=== PATIENT | female | born 1980 | race American Indian/Alaskan Native ===

== ENCOUNTER 2017-11-24 09:42 | Inpatient (IN) | payer MEDICAID ==
[2017-11-24] MEDS ORDERED: Oxycodone/Acetaminophen 5/325 mg Tab PO PRN ×2 (10:12)
[2017-11-24] MEDS ORDERED: Lactated Ringer's 1,000 ML IV SCH (10:15)
[2017-11-24 13:10] LABS: ALB/GLOB RATIO 0.8 (1.0-2.1); ALBUMIN 3.7 g/dL (3.5-5.0); ALT/SGPT 8 U/L (9-52); AST/SGOT 17 U/L (14-36); BLOOD UREA NITROGEN 5 mg/dL (7-17); CALCIUM 9.3 mg/dl (8.6-10.4); GFR NON-AFRICAN AMERICAN > 60
[2017-11-24 13:14] LABS: BASO # 0.1 K/uL (0.0-0.2); BASO % 0.3 % (0.0-2.0); EOS # 0.2 K/uL (0.0-0.7); EOS % 1.2 % (0.0-4.0); HEMOGLOBIN 9.9 g/dL (11.0-16.0); LYMPH # 2.4 K/uL (1.0-4.3); LYMPH % 14.9 % (20.0-40.0); MEAN CELL VOLUME 84.7 fL (81.0-99.0); MEAN CORPUSCULAR HGB CONC 33.1 g/dL (33.0-37.0); MEAN PLATELET VOLUME 9.6 fL (7.2-11.7); MONO # 1.2 K/uL (0.0-0.8); MONO % 7.6 % (0.0-10.0); NEUT # 12.4 K/uL (1.8-7.0); NRBC % 0.1 % (0.0-2.0); RBC 3.55 Mil/uL (3.80-5.20); RED CELL DISTRIBUTION WIDTH 15.9 % (11.5-14.5); WHITE BLOOD COUNT 16.3 K/uL (4.8-10.8)
--- NOTE | 2017-11-24 15:49 | OBADHP ---
Datetime: 11/24/2017 11:27 Admit Comment, IP Provider: cc: "Precipitous delivery" HPI: Patient is a who presented for precipitous delivery. Patient was in active labor and broug ht to the L_D department. Based on earliest ultrasound (05/28/17), gestational age is 38 weeks and 4 d ays. Since delivery was precipitous, information was obtained from prior charting. Patient was having movements and contractions upon presentation. There was no vaginal bleed. OBHx: Patient has had 6 prior deliveries. They were all , of which 5 were term and 1 . Most recent previous delivery was on 10/2011. GynHx: menarche was at 11 y/o. Frequency of preiods are at 28 days for a duration of 4-5 days. Neg ative HIV, RPR, HPV, chlamydia, gonorrhea. Positive for trichomoniasis vaginalis. No known history of fibroids or cysts. PMHx: Asthma, Seasonal allergies, PSHx: None Social Hx: Meds: ferrous sulfate, metronidazole, vitamins Allergies: NKDA ROS: unable to be obtained at the time since patient was in active labor. Assessment: Patient is a at 38 weeks and 4 days gestational age who presented with precipitous deliver y. Patient was in active labor and brought immedietly to the L_D department for successful . Plan: 1. Admit 2. NPO 3. Precipitous Corona Solares DO PGY1 H_P for Dr. Monte Pelvic Type - PN: Adequate Extremities - PN: Normal Abdomen - PN: Normal Back - PN: Normal Breast - PN: Not Done Lungs - PN: Normal Heart - PN: Normal Thyroid - PN: Normal Neurologic - PN: Normal HEENT - PN: Normal General - PN: Normal Presentation-Admit: Vertex Membranes, Provider: Guera Gonzalez, ACOG Physical Exam: Gen: Patient is in active labor upon presentation. Abdomen: Gravid abdomen. head is visible. Gestation - Est Wks by US: 38.4 IP Hx Assessment: The History has been Reviewed and is Current Vital Signs Provider: Reviewed; Within Normal Limits IP Chief Complaint: Uterine contractions Dilatation, Provider: 10 Effacement, Provider: 100 Station, Provider: 2 Genitourinary Exam: Normal DTRs - PN: Not Done IP Adm Impression: Term, intrauterine ; Active labor IP Admit Plan: Admit to unit; Initiate labor protocol
--- NOTE | 2017-11-24 16:10 | OBDS ---
DELIVERY PERSONNEL Delivery Doctor: DR CHIRINOS Engineering Librarian: Vinh Perez RN MATERNAL INFORMATION Delivery Anesthesia: None Estimated Blood Loss (ml): 200 Maternal Complications: Precipitous Labor (<3hrs) Provider Comments: Precipitous vaginal delivery upon transfered from the stretcher to the bed, of a viable female from CRISTAL position and over an intact perineum. Apgars 9_9 and BW 7lbs, 9oz. No time to monitor FHR or Cx's. EBL 200 mls Pt and both tolerated the procedure well and remained in LDR in S_S condition LABOR SUMMARY EDC: 12/05/2017 00:00 LABOR INFORMATION Reason for Induction: Not Applicable Group B Beta Strep: N/A Reason Steroids Not Administered: Not Applicable STAGES OF LABOR Stage 3 hrs: 0 Stage 3 min: 5 VAGINAL DELIVERY Episiotomy: None Laceration Type: None Initial Vag Sponge Count: 10 Final Vag Sponge Count: 10 Sponge Count Correct: N/A Sharps Count Correct: Yes BABY A INFORMATION Delivery Date/Time: 11/24/2017 09:43 Method of Delivery: Vaginal Born in Route : No : N/A Forceps: N/A Vacuum Extraction: N/A Shoulder Dystocia : No SHOULDER DYSTOCIA BABY A Infant Delivery Date/Time: 11/24/2017 09:43 PRESENTATION/POSITION BABY A Presentation: Cephalic Cephalic Presentation: Vertex Vertex Position: Right Occipital Posterior PLACENTA INFORMATION BABY A Placenta Delivery Time : 11/24/2017 09:48 Placenta Method of Delivery: Spontaneous Placenta Status: Delivered SCORES BABY A Heart Rate 1 min: >100 bpm Resp Effort 1 min: Good Cry Reflex Irritability 1 min: Cough or Sneeze or Pulls Away Muscle Tone 1 min: Active Motion Color 1 min: Body [place], Extremities Blue SCORE 1 MIN: 9 Heart Rate 5 min: >100 bpm Resp Effort 5 min: Good Cry Reflex Irritability 5 min: Cough or Sneeze or Pulls Away Muscle Tone 5 min: Active Motion Color 5 min: Body [place], Extremities Blue SCORE 5 MIN: 9 INFORMATION BABY A Gestational Age at Delivery: 38.0 Gestational Status: Term Infant Outcome : Liveborn Condition : Stable Sex: Female IDENTIFICATION/MEDS BABY A ID Band Number: [id number] ID Band Location: Left Leg; Left Arm Sensor Applied: Yes Sensor Number: [id number] Sensor Location : Cord Clamp Vitamin K Given : Not Given Erythromycin Given: Not Given WEIGHT/LENGTH BABY A Birthweight (gms): 3445 Infant Weight (lb): 7 Infant Weight (oz): 9 Infant Length Inches: 19.25 Length cms: 48.9 CORD INFORMATION BABY A No. Cord Vessels: 3 Nuchal Cord : N/A Cord Blood Taken: Yes Suction: Mouth; Nose ASSESSMENT BABY A Complications: None Foreign Service Officer/ALS Called : Yes Care By: dr heller Transferred To: Nursery
[2017-11-24 21:40] LABS: BARBITURATES, UR NEGATIVE (NEGATIVE); BENZODIAZEPINES, UR NEGATIVE (NEGATIVE); OPIATES, UR NEGATIVE (NEGATIVE); PHENCYCLIDINE, UR NEGATIVE (NEGATIVE)
[2017-11-24 22:47] LABS: SQUAMOUS EPITHIAL 5 /hpf (0-5); URINE BILIRUBIN NEGATIVE (NEGATIVE); URINE BLOOD 3+ (NEGATIVE); URINE CLARITY Hazy (Clear); URINE COLOR Red (YELLOW); URINE GLUCOSE (UA) NORMAL (Normal); URINE LEUKOCYTE ESTERASE 2+ Leu/uL (Negative); URINE PROTEIN 2+ mg/dL (NEGATIVE)
[2017-11-25 07:18] LABS: BASO # 0.1 K/uL (0.0-0.2); BASO % 0.5 % (0.0-2.0); EOS # 0.3 K/uL (0.0-0.7); EOS % 2.4 % (0.0-4.0); LYMPH # 2.3 K/uL (1.0-4.3); LYMPH % 21.5 % (20.0-40.0); MEAN CELL VOLUME 84.4 fL (81.0-99.0); MEAN CORPUSCULAR HEMOGLOBIN 28.5 pg (27.0-31.0); MEAN CORPUSCULAR HGB CONC 33.7 g/dL (33.0-37.0); MEAN PLATELET VOLUME 9.5 fL (7.2-11.7); MONO # 0.8 K/uL (0.0-0.8); MONO % 7.4 % (0.0-10.0); NEUT # 7.3 K/uL (1.8-7.0); NEUT % 68.2 % (50.0-75.0); RBC 2.62 Mil/uL (3.80-5.20); RED CELL DISTRIBUTION WIDTH 15.7 % (11.5-14.5); WHITE BLOOD COUNT 10.6 K/uL (4.8-10.8)
[2017-11-25 07:39] LABS: HEMOGLOBIN 7.4 g/dL (11.0-16.0)
[2017-11-25] MEDS: Multiple Vitamins Tab PO SCH (09:44)
--- NOTE | 2017-11-25 12:45 | OBPPN ---
Datetime: 11/25/2017 08:31 PP Pain Prov: Within normal limits PP Pain Prov comment: headache PP Nausea Prov: Present PP Flatus Prov: Yes PP BM Prov: No PP Nausea Prov comment: postural dizziness PP Breasts Prov: Not Done PP Heart Prov: Normal PP Lungs Prov: Normal PP Abdomen/Uterus Prov: Normal PP Lochia Prov: Normal PP Vulva/Perineum Prov: Normal PP CVA Tenderness Prov: Normal PP Extremities Prov: Normal PP C/S Incision Prov: Not Applicable PP Progress Prov: Not Applicable PP Comments Phys Exam Prov: Cardio: RRR, normal s1/s2 Lungs: CTA b/l. No w/r/r. Abdominal: fundal height is palpated at the periumbilical region. Lower extremities: no pitting edema. No calf tenderness or swelling. PP Impression Prov: Normal progression PP Plan Prov: Continue present management PP Progress Note Prov: PPD #1 Patient seen and examined at bedside this morning. She complains of mild headache and postural diz ziness. Patient had an episode of vomiting last night but it has resolved. Patient is currently on re gular diet. Denies chest pain, shortness of breath, lochia, lower extremity pain/swelling. Patient's pain is controlled on motrin and percocet. She is ambulating well. Patient says that she prefers to b ottle feed. She has only bottlefed in her previous pregnancies. She has not had a bowel movement but endorses flatus. Patient is requesting abdominal binder for support. A/P: Patient is a 37 y/o F PPD #1 via on 11/24 with no complications. 1. Vital Signs Stable 2. f/u repeat labs. 3. Encourage ambulation. 4. control options discussed. 5. Abdominal binder 6. Anticipate possible discharge for tomorrow. 7. Follow up in clinic in 6 weeks. -- Service Attending Visual Merchandising Associate Althea Kurtz-- patient seen and examined with residents no complaints currently, headache has resolved had one episode of feeling dizzy will trend labs to follow Hb regular diet, pain medication PRN encourage out of bed, ambulation routine post care Vital Signs Provider PP: Reviewed; Within Normal Limits
[2017-11-26 07:25] LABS: HEMOGLOBIN 8.3 g/dL (11.0-16.0); MEAN CELL VOLUME 85.1 fL (81.0-99.0); MEAN CORPUSCULAR HEMOGLOBIN 28.5 pg (27.0-31.0); MEAN CORPUSCULAR HGB CONC 33.5 g/dL (33.0-37.0); MEAN PLATELET VOLUME 9.5 fL (7.2-11.7); RBC 2.91 Mil/uL (3.80-5.20); RED CELL DISTRIBUTION WIDTH 16.1 % (11.5-14.5)
[2017-11-26] MEDS: Multiple Vitamins Tab PO SCH (09:40)
[2017-11-26] MEDS ORDERED: Influenza Vaccine 60 MCG/0.5 ML SYR (3 yr & up) IM ONE (09:44)
--- NOTE | 2017-11-26 10:24 | OBPPN ---
Datetime: 11/26/2017 10:22 PP Pain Prov: Within normal limits PP Nausea Prov: Denies PP Flatus Prov: Yes PP BM Prov: No PP Breasts Prov: Normal PP Heart Prov: Normal PP Lungs Prov: Normal PP Abdomen/Uterus Prov: Normal PP Lochia Prov: Normal PP Vulva/Perineum Prov: Normal PP CVA Tenderness Prov: Normal PP Extremities Prov: Normal PP C/S Incision Prov: Not Applicable PP Progress Prov: Normal PP Impression Prov: Normal progression PP Plan Prov: Discharge PP Progress Note Prov: pt seen adn examiend preort pain contorlled, ambuting, voidng, passign flatus , no BM, otleratign regualr diet withotu nause, vomitng, cp, sob, urinary complaint. pt is breat and bottel feedign and denies any sadness or depression VSS PE gen :N nad AAO x 3 RESP Ctab/l CVS: rrr, +S1/S2 BREAST: sot, NT, non enroged b/l ABD: soft, NT/ND, +BS, no guaridng, no rebound tendnerss, no rigdity FUNDUS: Firm, belwo level of umbiclus VE: minmal lochai, non fusl smelling EX:T negative juan's sign, no calf tendnerness A/P S/p ppd #2 doignw jesus morgan dc home f/u clinci 1 week precation givne IP PP Procedures: None Vital Signs Provider PP: Reviewed; Within Normal Limits
--- NOTE | 2017-11-26 10:27 | OBDCSUM ---
Datetime: 11/26/2017 10:23 Discharged to, Provider: Home Follow up at, Provider: clinic Disch Instr Activity: Normal activity Disch Instr Diet: Regular Discharge Instructions, Provider: Routine instructions given Discharge Diagnosis, Provider: Term Delivered Discharge Time: 11/26/2017 10:23 Follow up in weeks, Provider: 6 weeks Disch Referrals: None Contraception discussed, Prov: Yes Disch Activity Restrictions: No sexual activity; Nothing in vagina - [place], tampons, douche Discharge Comment, Provider: precautin givne Contraception after Delivery: Not Planning to Use
[2017-11-26 11:47] VITALS: BP 142/79; PULSE 69; RESP 18; TEMP 98.1; O2SAT 97
== END 2017-11-26 12:35 | disposition home or self-care (01) | DRG 373 ==
LOC: C.4D 09:42 → C.4M 12:00
PROVIDERS: ADMIT Obstetrics & Gynecology; ATTEND Obstetrics & Gynecology
PROC: 10E0XZZ Delivery of Products of Conception, External Approach (ICD-10-PCS; principal; 2017-11-24)
DX: O62.3 Precipitate labor (principal); O99.52 Diseases of the respiratory system complicating childbirth; J45.909 Unspecified asthma, uncomplicated; Z3A.38 38 weeks gestation of pregnancy; Z37.0 Single live birth